=== PATIENT | female | born 1945 | race Caucasian/White ===

== ENCOUNTER 2023-08-25 11:08 | Outpatient (REF) | payer MEDICARE, BC, SELFPAY ==
[2023-08-25 11:15] VITALS: BMI 35.3
[2023-08-25 11:17] VITALS: BP 136/65; PULSE 94; RESP 16; TEMP 36.5; O2SAT 98
== END 2023-08-25 11:09 | disposition home or self-care (01) ==
LOC: HO.MS 11:08
PROVIDERS: PCP Physician Assistant; Visit Provider Ophthalmology
PROC: (CPT 66821; principal; 2023-08-25 14:10)
DX: H26.492 Other secondary cataract, left eye (principal)
CPT/HCPCS: 66821